=== PATIENT | male | born 1970 | race African-American/Black ===

== ENCOUNTER 2017-08-12 19:22 | Emergency (ER) | payer OTHER ==
[~2017-08-12] VITALS: Ht 177.8 cm; Wt 82.1 kg
[2017-08-12] MEDS ORDERED: IV NORMAL SALINE 1000 ML BAG IV ONE (20:00)
[2017-08-12] MEDS ORDERED: ACETAMINOPHEN ES 500 MG TABLET PO ONE (20:00)
[2017-08-12] MEDS ORDERED: ACETAMINOPHEN ES 500 MG TABLET ONE (20:24)
[2017-08-12 20:31] LABS: BASOPHILS % (AUTO) 0.5 % (0.0-2.0); BILIRUBIN,DIRECT 0.2 mg/dL (0.0-0.2); BILIRUBIN,TOTAL 0.7 mg/dL (0.2-1.0); CREATININE 1.3 mg/dL (0.6-1.3); EOSINOPHILS % (AUTO) 0.2 % (0.0-7.0); HEMATOCRIT 43.7 % (36.7-47.1); HEMOGLOBIN 14.7 g/dL (12.5-16.3); LYMPHOCYTES # (AUTO) 0.8 K/uL (20.0-40.0); MEAN CORPUSCULAR HEMOGLOBIN 26.7 uug (23.8-33.4); MEAN CORPUSCULAR HGB CONC 34 g/dL (32.5-36.3); MEAN CORPUSCULAR VOLUME 79.5 fL (73.0-96.2); MONOCYTES # (AUTO) 1.2 K/uL (2.0-10.0); MONOCYTES % (AUTO) 12.2 % (0.0-11.0); NEUTROPHILS # (AUTO) 7.9 K/uL (1.8-8.9); NEUTROPHILS % (AUTO) 79.1 % (38.5-71.5); PLATELET COUNT (AUTO) 184 K/uL (152-348); POTASSIUM 3.5 mmol/L (3.5-5.1); RED BLOOD CELL COUNT(AUTO) 5.49 MIL/uL (4.06-5.63); TOTAL PROTEIN, SERUM 7.4 g/dL (6.4-8.2)
[2017-08-12 20:53] LABS: *BILIRUBIN,URIN NEGATIVE (NEGATIVE); *BLOOD, URINE 2+ (NEGATIVE); *CLARITY,URINE CLEAR (CLEAR); *COLOR,URINE YELLOW (YELLOW); *KETONES,URINE NEGATIVE (NEGATIVE); *PROTEIN,URINE 1+ (NEGATIVE); *UROBILINOGEN,URINE 0.2 E.U./dl (NORMAL); LEUKOCYTE ESTERASE ,URINE TRACE (NEGATIVE); NITRITE, URINE NEGATIVE (NEGATIVE); UGLUCOSE NEGATIVE (NEGATIVE)
[2017-08-12 20:57] LABS: BAND % (MANUAL) 16 % (0-10); LYMPHOCYTES % (MANUAL) 10 % (20-40); MONOCYTES % (MANUAL) 11 % (2-10); NEUTROPHILS % (MANUAL) 63 % (42-75)
[2017-08-12 21:23] LABS: BACTERIA,URINE FEW /HPF (NONE SEEN); MUCUS,URINE FEW /LPF (0-FEW)
[2017-08-12] MEDS ORDERED: CEFTRIAXONE 1 G in IV DEXTROSE 5% 50 ML IV ONE (21:30)
--- NOTE | 2017-08-12 22:00 | NUR ---
Transported to CT scan
[2017-08-12] MEDS ORDERED: CEFTRIAXONE 1 G VIAL ONE (22:05)
--- NOTE | 2017-08-12 22:30 | NUR ---
Returned from CT, no significant events
--- NOTE | 2017-08-12 23:05 | NUR ---
Patient discharged to home in stable conditon. Written and verbal after care instructions given. Patient verbalizes understanding of instructions.
[2017-08-12 23:12] VITALS: BP 133/70
== END 2017-08-12 23:13 | disposition home or self-care (01) ==
LOC: ER 19:23
DX: N41.9 Inflammatory disease of prostate, unspecified (principal); Z88.5 Allergy status to narcotic agent
CPT/HCPCS: 36415; 74176; 80048; 80076; 81001; 83605; 85025; 87040 ×2; 87086; 96361; 96365; 99285; A4663; J0696; J7030; J7040; J7060

== ENCOUNTER 2017-08-14 13:08 | Inpatient (IN) | payer OTHER ==
[~2017-08-14] VITALS: Ht 188 cm; Wt 88.5 kg
[2017-08-14] MEDS ORDERED: PIPERACILLIN SODIUM/TAZOBACTAM 3.375 G in IV DEXTROSE 5% 50 ML IV ONE (14:15)
[2017-08-14] MEDS ORDERED: IV NORMAL SALINE 1000 ML BAG IV ONE (14:15)
[2017-08-14] MEDS ORDERED: AZITHROMYCIN IV 500 MG in IV DEXTROSE 5% 250 ML IV ONE (14:15)
[2017-08-14 14:43] LABS: BASOPHILS % (AUTO) 0.4 % (0.0-2.0); EOSINOPHILS % (AUTO) 0.3 % (0.0-7.0); HEMATOCRIT 42.9 % (36.7-47.1); HEMOGLOBIN 14.2 g/dL (12.5-16.3); LYMPHOCYTES # (AUTO) 1.7 K/uL (20.0-40.0); LYMPHOCYTES % (AUTO) 13.5 % (20.5-51.5); MEAN CORPUSCULAR HEMOGLOBIN 26.3 uug (23.8-33.4); MEAN CORPUSCULAR HGB CONC 33 g/dL (32.5-36.3); MEAN CORPUSCULAR VOLUME 79.4 fL (73.0-96.2); MONOCYTES # (AUTO) 2.1 K/uL (2.0-10.0); MONOCYTES % (AUTO) 17.2 % (0.0-11.0); NEUTROPHILS # (AUTO) 8.5 K/uL (1.8-8.9); NEUTROPHILS % (AUTO) 68.6 % (38.5-71.5); PLATELET COUNT (AUTO) 227 K/uL (152-348); WHITE BLOOD COUNT (AUTO) 12.4 K/uL (3.6-10.2)
[2017-08-14 14:44] LABS: CREATININE 1.3 mg/dL (0.6-1.3); POTASSIUM 3.7 mmol/L (3.5-5.1)
[2017-08-14 14:50] LABS: BILIRUBIN,DIRECT 0.1 mg/dL (0.0-0.2); BILIRUBIN,TOTAL 0.5 mg/dL (0.2-1.0); TOTAL PROTEIN, SERUM 7.5 g/dL (6.4-8.2)
[2017-08-14 15:07] LABS: BAND % (MANUAL) 13 % (0-10); LYMPHOCYTES % (MANUAL) 15 % (20-40); MONOCYTES % (MANUAL) 15 % (2-10); NEUTROPHILS % (MANUAL) 57 % (42-75)
[2017-08-14 15:15] LABS: *BILIRUBIN,URIN NEGATIVE (NEGATIVE); *BLOOD, URINE 1+ (NEGATIVE); *CLARITY,URINE SLIGHTLY CLOUDY (CLEAR); *COLOR,URINE YELLOW (YELLOW); *KETONES,URINE TRACE (NEGATIVE); *PROTEIN,URINE 2+ (NEGATIVE); *UROBILINOGEN,URINE 0.2 E.U./dl (NORMAL); NITRITE, URINE NEGATIVE (NEGATIVE); PH,URINE 6.5 (5.0-8.0); UGLUCOSE NEGATIVE (NEGATIVE)
--- NOTE | 2017-08-14 15:17 | NUR ---
lab michelle blood and blood cx,cxr done, iv placed, azithromycin infusing, 1L 0.9ns bolus infusing. monitor shows nsr, po2=99%. urine sent earlier. pt positioned for comfort.
[2017-08-14] MEDS ORDERED: PIPERACILLIN/TAZOBACTAM/D5W 50 ML IV ONE (15:26)
[2017-08-14] MEDS ORDERED: AZITHROMYCIN 500 MG VIAL IV ONE (15:26)
[2017-08-14 15:27] LABS: LEUKOCYTE ESTERASE ,URINE 2+ (NEGATIVE)
[2017-08-14 15:28] LABS: BACTERIA,URINE FEW /HPF (NONE SEEN); MUCUS,URINE MANY /LPF (0-FEW); WBC,URINE 80-100 /HPF (0-3)
[2017-08-14] MEDS ORDERED: KETOROLAC TROMETHAMINE 30 MG INJ IVP ONE (15:45)
[2017-08-14] MEDS ORDERED: KETOROLAC TROMETHAMINE 30 MG INJ ONE (16:02)
--- NOTE | 2017-08-14 17:10 | NUR ---
MSE COMPLETED, BELONGINGS LIST, ADMIT ORDER COMPLETED. SBAR REPORT TO GALLO DELCID. PT TO RM 227 VIA W/C.
[2017-08-14] MEDS ORDERED: ONDANSETRON 4 MG/2 ML VIAL IV PRN (17:15)
[2017-08-14] MEDS ORDERED: CLONIDINE HCL 0.1 MG TABLET PO PRN (17:15)
[2017-08-14] MEDS ORDERED: ZOLPIDEM 5 MG TABLET PO PRN (17:15)
[2017-08-14] MEDS ORDERED: MAGNESIUM HYDROXIDE 30 ML LIQUID UDC PO PRN (17:15)
--- NOTE | 2017-08-14 17:25 | NUR ---
RECEIVED PATIENT FOR ADMISSION 46 YEARS OLD MALE FROM ED WITH DX OF URINARY TRACT INFECTION AND PROSTATITIS PLACED INTO BED FIXED AND MADE COMFORTABLE PATIENT IS ALERT AND ORIENTED ON ROOM AIR.ORIENTED TO HIS ROOM AND FACILITY PROTOCOL NOT IN DISTRESS AT THIS TIME.
--- NOTE | 2017-08-14 17:31 | NUR ---
CLINICAL PHARMACY NOTE: VANCOMYCIN DOSING Request for vancomycin dosing on 46 y/o male 6'2" 195lbs for UTI Temp 100.1 BUN 8 Scr 1.3 WBC 12.4 Bands 13 also on Zosyn Start vancomycin 1250mg ivpb 12h will order trough prior to 4 th dose. Will continue to monitor
[2017-08-14 17:50] VITALS: BP 147/96
[2017-08-14] MEDS: IV 1/2NS 1000 ML 1,000 ML IV PRN (18:05)
[2017-08-14] MEDS: VANCOMYCIN IV 1,250 MG in IV DEXTROSE 5% 500 ML IV SCH (18:05)
--- NOTE | 2017-08-14 18:28 | NUR ---
IVPB AND IV ANTIBIOTICS ARE IN PROGRESS AT THIS TIME WITH NO ADVERSE OR ALLERGIC REACTIONS AT THIS TIME WILL CONTINUE TO OBSERVE.
--- NOTE | 2017-08-14 19:00 | NUR ---
Patient is laying in bed with HOB elevated at 30 degrees. Patient denies pain or discomfort at this point and time. Call light is with in reach.
[2017-08-14 20:00] VITALS: BP 140/89
[2017-08-14] MEDS: PIPERACILLIN/TAZOBACTAM/D5W 50 ML IV SCH (20:31)
[2017-08-14] MEDS: KETOROLAC TROMETHAMINE 30 MG INJ IVP PRN (20:45)
[2017-08-15] MEDS: ACETAMINOPHEN 325 MG TABLET PO PRN ×2 (04:14→18:57)
[2017-08-15] MEDS: PIPERACILLIN/TAZOBACTAM/D5W 50 ML IV SCH ×4 (04:48→20:44)
[2017-08-15] MEDS: IV 1/2NS 1000 ML 1,000 ML IV PRN ×2 (04:51→20:36)
--- NOTE | 2017-08-15 05:15 | NUR ---
TYLENOL EFFECTIVE. DISCOMFORT HAS IMPROVED. PER PATIENT HE IS STILL HAVING BOUTS OF SWEATING AND CHILLS AT TIMES.
[2017-08-15 06:00] VITALS: BP 143/86
[2017-08-15] MEDS: VANCOMYCIN IV 1,250 MG in IV DEXTROSE 5% 500 ML IV SCH ×2 (06:16→17:26)
--- NOTE | 2017-08-15 06:45 | NUR ---
NOTED LOW GRAD FEVER. NO EPISODES OF FALLS ON SHIFT. CALL LIGHT WITH IN REACH. PATIENT WAS PAIN FREE THROUGHOUT PURCHASING/RECEIVING. WILL CONTINUE TO MONITOR.
[2017-08-15 07:04] LABS: BASOPHILS # (AUTO) 0.1 K/uL (0.0-8.0); BASOPHILS % (AUTO) 0.5 % (0.0-2.0); EOSINOPHILS # (AUTO) 0.2 K/uL (0.0-0.7); EOSINOPHILS % (AUTO) 1.6 % (0.0-7.0); HEMATOCRIT 39.2 % (36.7-47.1); HEMOGLOBIN 12.9 g/dL (12.5-16.3); LYMPHOCYTES # (AUTO) 1.9 K/uL (20.0-40.0); LYMPHOCYTES % (AUTO) 18.6 % (20.5-51.5); MEAN CORPUSCULAR HEMOGLOBIN 26.2 uug (23.8-33.4); MEAN CORPUSCULAR HGB CONC 33 g/dL (32.5-36.3); MEAN CORPUSCULAR VOLUME 79.6 fL (73.0-96.2); MONOCYTES # (AUTO) 1.8 K/uL (2.0-10.0); MONOCYTES % (AUTO) 17.8 % (0.0-11.0); NEUTROPHILS # (AUTO) 6.3 K/uL (1.8-8.9); NEUTROPHILS % (AUTO) 61.5 % (38.5-71.5); PLATELET COUNT (AUTO) 236 K/uL (152-348); RED BLOOD CELL COUNT(AUTO) 4.92 MIL/uL (4.06-5.63); WHITE BLOOD COUNT (AUTO) 10.2 K/uL (3.6-10.2)
[2017-08-15 07:22] LABS: BILIRUBIN,TOTAL 0.4 mg/dL (0.2-1.0); CREATININE 1.1 mg/dL (0.6-1.3); MAGNESIUM 1.9 mg/dL (1.8-2.4); PHOSPHOROUS 2.9 mg/dL (2.5-4.9); POTASSIUM 4.4 mmol/L (3.5-5.1); TOTAL PROTEIN, SERUM 6.4 g/dL (6.4-8.2)
[2017-08-15] MEDS: PANTOPRAZOLE SODIUM 40 MG TABLET.DR PO SCH (07:27)
--- NOTE | 2017-08-15 08:00 | NUR ---
RECEIVED PATIENT AWAKE ALERT AND ORIENTED STATED HAS MILD PAIN BUT DECLINED PAIN MEDICATION AT THIS TIME REMAIN ON IVF AND IV ANTIBIOTICS ORDERED WITH NO ADVERSE OR ALLERGIC REACTIONS AT THIS TIME VOIDING WITH BRP MADE COMFORTABLE NOT IN DISTRESS AND WILL CONTINUE TO OBSERVE.
[2017-08-15] MEDS: KETOROLAC TROMETHAMINE 30 MG INJ IVP PRN ×2 (08:40→14:55)
[2017-08-15 11:45] VITALS: BP 137/89
[2017-08-15 12:20] LABS: BAND % (MANUAL) 12 % (0-10); EOSINOPHILS % (MANUAL) 2 % (0-8); LYMPHOCYTES % (MANUAL) 13 % (20-40); MONOCYTES % (MANUAL) 13 % (2-10); NEUTROPHILS % (MANUAL) 60 % (42-75)
--- NOTE | 2017-08-15 14:50 | NUR ---
CLINICAL PHARMACY NOTE: VANCOMYCIN DOSING To continue vancomycin dosing on 46 y/o male 6'2" 195lbs for UTI Temp 99.1 BUN 10 Scr 1.1 WBC 10.2 also on Zosyn Will continue vancomycin 1250mg ivpb 12h, trough pending for tomorrow early am at 0530. Will check trough and readjust as needed. Will continue to monitor
--- NOTE | 2017-08-15 15:00 | NUR ---
PATIENT STATED THAT HE FEELS THE CHILL AND THINKS THAT HE HAS A FEVER TEMP CHECKED AND ITS 99.2 PATIENT ALSO STATED THAT HE DOES NOT FEEL GOOD UNABLE TO ELABORATE FUTHER SO DR WHALEY CALLED AND HE STATED WILL SEE PATIENT SOON HE GETS BACK TO THE HOSPITAL THIS EVENING.
[2017-08-15 15:50] VITALS: BP 148/95
--- NOTE | 2017-08-15 17:00 | NUR ---
REMAIN ON IV ANTIBIOTICS ORDERED WITH NO ADVERSE OR ALLERGIC REACTIONS AT THIS TIME IV SITE CHANGED TO HIS LEFT UPPER ARM.
--- NOTE | 2017-08-15 18:57 | NUR ---
PATIENT REQUESTED FOR TYLENOL STATED HAS GENERALISED ACHES MEDICATED ORDERED
[2017-08-15 19:00] VITALS: BP 146/87
[2017-08-15] MEDS: MORPHINE SULFATE 4 MG/1 ML DISP.SYRIN IV PRN (20:35)
[2017-08-15] MEDS: TAMSULOSIN HCL 0.4 MG CAP.SR.24H PO SCH (20:35)
[2017-08-15] MEDS: IBUPROFEN 400 MG TABLET PO PRN (23:33)
[2017-08-15] MEDS ORDERED: IBUPROFEN 400 MG TABLET ONE (23:44)
[2017-08-16] MEDS: MORPHINE SULFATE 4 MG/1 ML DISP.SYRIN IV PRN ×5 (01:09→18:12)
[2017-08-16] MEDS: PIPERACILLIN/TAZOBACTAM/D5W 50 ML IV SCH ×4 (01:09→20:12)
--- NOTE | 2017-08-16 05:47 | NUR ---
PT SLEPT INTERMITTENTLY THROUGH THE NIGHT AND WAS EASILY AWOKEN, PT COMPLAINED OF PAIN, MORPHINE WAS GIVEN AND WAS EFFECTIVE. PT DENIED HAVING ANY DIFFICULTY BREATHING. PT HAD ELEVATED TEM AT START OF SHIFT, COOLING MEASURES WERE PROVIDED AND WAS NOT EFFECTIVE, PT WAS GIVEN MOTRIN AND WAS EFFECTIVE. ALL NEEDS MET SAFETY MEASURES ARE IN PLACE, CALL LIGHT WITHIN REACH, BED ALARM IS ON.
[2017-08-16] MEDS ORDERED: MORPHINE SULFATE 4 MG/1 ML DISP.SYRIN ONE (05:59)
[2017-08-16] MEDS: PANTOPRAZOLE SODIUM 40 MG TABLET.DR PO SCH (06:14)
[2017-08-16] MEDS: ACETAMINOPHEN 325 MG TABLET PO PRN ×3 (06:14→18:16)
[2017-08-16 06:23] LABS: BASOPHILS # (AUTO) 0.1 K/uL (0.0-8.0); BASOPHILS % (AUTO) 0.5 % (0.0-2.0); EOSINOPHILS % (AUTO) 0.2 % (0.0-7.0); HEMATOCRIT 42.3 % (36.7-47.1); LYMPHOCYTES # (AUTO) 1.9 K/uL (20.0-40.0); LYMPHOCYTES % (AUTO) 10.4 % (20.5-51.5); MEAN CORPUSCULAR HEMOGLOBIN 26.1 uug (23.8-33.4); MEAN CORPUSCULAR HGB CONC 33 g/dL (32.5-36.3); MONOCYTES # (AUTO) 1.8 K/uL (2.0-10.0); MONOCYTES % (AUTO) 9.6 % (0.0-11.0); NEUTROPHILS # (AUTO) 14.5 K/uL (1.8-8.9); NEUTROPHILS % (AUTO) 79.3 % (38.5-71.5); PLATELET COUNT (AUTO) 270 K/uL (152-348); RED BLOOD CELL COUNT(AUTO) 5.36 MIL/uL (4.06-5.63); WHITE BLOOD COUNT (AUTO) 18.3 K/uL (3.6-10.2)
[2017-08-16 06:30] LABS: CREATININE 1.4 mg/dL (0.6-1.3); MAGNESIUM 1.9 mg/dL (1.8-2.4); PHOSPHOROUS 3.9 mg/dL (2.5-4.9); POTASSIUM 4.1 mmol/L (3.5-5.1)
[2017-08-16] MEDS: VANCOMYCIN IV 1,250 MG in IV DEXTROSE 5% 500 ML IV SCH (06:40)
[2017-08-16 07:21] LABS: *GC NAA Negative (Negative); *TRIC.VAG. NAA Negative (Negative)
[2017-08-16 09:37] LABS: BAND % (MANUAL) 10 % (0-10); EOSINOPHILS % (MANUAL) 1 % (0-8); LYMPHOCYTES % (MANUAL) 14 % (20-40); MONOCYTES % (MANUAL) 11 % (2-10); NEUTROPHILS % (MANUAL) 64 % (42-75)
[2017-08-16 11:27] VITALS: BP 155/97
[2017-08-16] MEDS ORDERED: BARIUM SULFATE 450 ML ORAL.SUSP ONE (11:45)
[2017-08-16] MEDS ORDERED: IV NORMAL SALINE 250 ML IV ONE (11:45)
[2017-08-16] MEDS ORDERED: IOHEXOL 300MG/ML 100 ML INFUS..BTL ONE (11:45)
[2017-08-16 11:53] VITALS: BP 155/97
--- NOTE | 2017-08-16 13:28 | NUR ---
CLINICAL PHARMACY NOTE: VANCOMYCIN DOSING S: To continue vancomycin dosing on 46 y/o male 6'2" 195lbs for UTI o: Temp 99.3 BUN 9 Scr 1.4 WBC 18.3 vanco trough level: 6 P: Since vanco trough level is sub therapeutic, Will change dose form vancomycin 1250mg ivpb 12h to vancomycin 1500mg IVPB q10h for predicted vanco trough level of 15 mcg/ml. 1st dose is due today at 1500. Plan to order vanco trough level before 4th dose (level not yet ordered). Will monitor renal function & adjust dose if needed.. Will continue to monitor
[2017-08-16 14:14] VITALS: BP 139/86
[2017-08-16] MEDS ORDERED: VANCOMYCIN IV 1,500 MG in IV DEXTROSE 5% 500 ML IV SCH (15:00)
--- NOTE | 2017-08-16 16:34 | NUR ---
Patient been in bed awake watching TV. No s/s of distress noted. Fever was noted during the day, Tylenol given but patient continue to have a fever above >100.[address] Flor and Shayne notified. Preliminary gram (-)(+) rods was notified by lab, Dr. Bella aware. Stool OB was collected and sent it to lab. Patient is bed now, alert. Medication were given as ordered. all procedures were done. Safety and comfort provided. Will continue monitoring.
[2017-08-16 16:54] VITALS: BP 136/85
[2017-08-16] MEDS: IV 1/2NS 1000 ML 1,000 ML IV PRN (18:19)
--- NOTE | 2017-08-16 18:45 | NUR ---
Patient in bed alert, no s/s of distress noted. Latest Temp 100.1, Dr. Flor aware. New order of Tylenol q4h prn was ordered. Ice packs were given to lower the fever, patient have been cooperative with the care. Safety and comfort provided. Report will be given to the next shift nurse
--- NOTE | 2017-08-16 18:50 | NUR ---
Patient did not have a reaction during my shift from the acetaminophen. Will continue monitoring for any reaction.
[2017-08-16] MEDS ORDERED: ACETAMINOPHEN 325 MG TABLET PO PRN (19:00)
[2017-08-16 20:00] VITALS: BP 120/79
--- NOTE | 2017-08-16 20:00 | NUR ---
NSG: PATIENT TEMP 101.3. COOLING MEASURE PROVIDED. TYLENOL NOT DUE YET.ENCOURAGED PO INTAKE. CHARGE NURSE MADE AWARE.
--- NOTE | 2017-08-16 20:00 | NUR ---
NSG: RECEIVED PATIENT AWAKE ALERT AND ORIENTED NO C/O PAIN OR SOB AT THIS TIME. REMAIN ON IVF AND IV ANTIBIOTICS ORDERED WITH NO ADVERSE OR ALLERGIC REACTIONS AT THIS TIME VOIDING WITH BRP MADE COMFORTABLE NOT IN DISTRESS AND WILL CONTINUE TO OBSERVE.
[2017-08-16] MEDS: TAMSULOSIN HCL 0.4 MG CAP.SR.24H PO SCH (20:29)
[2017-08-16] MEDS: LACTOBACILLUS RHAMNOSUS GG 1 EACH CAPSULE PO SCH (20:29)
--- NOTE | 2017-08-16 21:00 | NUR ---
NSG: TEMP 99.5 NOW. COOLING MEASURE EFFECTIVE.
[2017-08-16] MEDS: IBUPROFEN 400 MG TABLET PO PRN (21:11)
--- NOTE | 2017-08-16 21:13 | NUR ---
NSG: PATIENT C/O PAIN. MOTRIN 400 MG PO GIVEN.
[2017-08-16] MEDS: LEVOFLOXACIN 500 MG/D5W 500 MG in PREMIXED 1 EACH IV SCH (21:41)
--- NOTE | 2017-08-16 22:15 | NUR ---
NSG: PATIENT STATED I AM FEELING BETTER NOW. PRN EFFECTIVE FOR PAIN.
[2017-08-17] VITALS: BP 120/58
--- NOTE | 2017-08-17 02:01 | NUR ---
NSG: PATIENT REFUSED IVF STATED I DON;T WANT THIS. I AM DRINKING ENOUGH WATER.
[2017-08-17 04:00] VITALS: BP 130/91
[2017-08-17 05:33] VITALS: BP 130/91
--- NOTE | 2017-08-17 05:36 | NUR ---
NSG: REMAIN COMFORTABLE MOST OF THE NIGHT. PT SLEPT INTERMITTENTLY THROUGH THE NIGHT. PT DENIED HAVING ANY DIFFICULTY BREATHING. PT HAD TEMP 101.3 AT START OF SHIFT, COOLING MEASURES WERE PROVIDED AND WAS EFFECTIVE, GIVEN MOTRIN AND WAS EFFECTIVE FOR PAIN. NO C/O PAIN OR DISCOMFORT @ THIS TIME. VOIDING FREELY. TEMP 98.7 THIS MORNING. ALL NEEDS MET SAFETY MEASURES ARE IN PLACE, CALL LIGHT WITHIN REACH, BED ALARM IS ON. CONTINUE PLAN OF CARE.
[2017-08-17] MEDS: IV 1/2NS 1000 ML 1,000 ML IV PRN ×2 (06:11→17:04)
[2017-08-17] MEDS: PANTOPRAZOLE SODIUM 40 MG TABLET.DR PO SCH (06:16)
[2017-08-17 07:26] LABS: BASOPHILS % (AUTO) 0.3 % (0.0-2.0); CREATININE 1.2 mg/dL (0.6-1.3); EOSINOPHILS # (AUTO) 0.2 K/uL (0.0-0.7); EOSINOPHILS % (AUTO) 0.9 % (0.0-7.0); HEMATOCRIT 40.6 % (36.7-47.1); HEMOGLOBIN 13.6 g/dL (12.5-16.3); LYMPHOCYTES % (AUTO) 10.6 % (20.5-51.5); MAGNESIUM 2.2 mg/dL (1.8-2.4); MEAN CORPUSCULAR HEMOGLOBIN 26.6 uug (23.8-33.4); MEAN CORPUSCULAR HGB CONC 34 g/dL (32.5-36.3); MEAN CORPUSCULAR VOLUME 79.4 fL (73.0-96.2); MONOCYTES % (AUTO) 10.4 % (0.0-11.0); NEUTROPHILS # (AUTO) 14.7 K/uL (1.8-8.9); NEUTROPHILS % (AUTO) 77.8 % (38.5-71.5); PHOSPHOROUS 3.2 mg/dL (2.5-4.9); PLATELET COUNT (AUTO) 309 K/uL (152-348); POTASSIUM 3.9 mmol/L (3.5-5.1); RED BLOOD CELL COUNT(AUTO) 5.11 MIL/uL (4.06-5.63); WHITE BLOOD COUNT (AUTO) 18.9 K/uL (3.6-10.2)
--- NOTE | 2017-08-17 08:00 | NUR ---
PATIENT IS AWAKE, AOX3 AND COOPERATIVE. HE COMPLAINS OF PAIN 8/10 IN THE PROSTATE AREA, MEDICATED PER MD ORDERS. WILL REASSESS PAIN AND CONTINUE TO MONITOR PATIENT
[2017-08-17] MEDS: LACTOBACILLUS RHAMNOSUS GG 1 EACH CAPSULE PO SCH ×2 (08:28→20:29)
[2017-08-17] MEDS: KETOROLAC TROMETHAMINE 30 MG INJ IVP PRN ×3 (08:30→20:29)
--- NOTE | 2017-08-17 08:30 | NUR ---
PAIN MEDICATION EFFECTIVE, PATIENT STATES PAIN LEVEL IS 3/10. WILL CONTINUE TO MONITOR PATIENT
[2017-08-17 10:07] LABS: HEPATITIS B SURFACE AB Reactive (.); HEPATITIS B SURFACE AG Negative (Negative)
[2017-08-17 11:00] VITALS: BP 141/85
--- NOTE | 2017-08-17 12:00 | NUR ---
PATIENT IN BED AWAKE WATCHING TV, NO SIGNS OR SYMPTOMS OF DISTRESS OR DISCOMFORT NOTED AT THIS TIME, WILL CONTINUE TO MONITOR PATIENT
[2017-08-17 12:52] LABS: BAND % (MANUAL) 1 % (0-10); LYMPHOCYTES % (MANUAL) 17 % (20-40); MONOCYTES % (MANUAL) 11 % (2-10); MYELOCYTES % 1 % (0-0); NEUTROPHILS % (MANUAL) 70 % (42-75)
--- NOTE | 2017-08-17 14:33 | NUR ---
PATIENT C/O OF PAIN 8/10 IN PROSTATE/ABDOMEN AREA, PRN PAIN MEDICATION ADMINISTERED PER MD ORDERS. WILL CONTINUE TO MONITOR PATIENT
--- NOTE | 2017-08-17 15:10 | NUR ---
PAIN MEDICATION EFFECTIVE, PATIENT STATES "I FEELS MUCH BETTER", PAIN IS DOWN TO 3/10 WILL CONTINUE TO MONITOR PATIENT
[2017-08-17 15:53] VITALS: BP 137/88
--- NOTE | 2017-08-17 19:20 | NUR ---
Received patient awake, watching TV at this time but presented tolerable pain. Will continue to monitor.
[2017-08-17 20:00] VITALS: BP 142/87
[2017-08-17] MEDS: LEVOFLOXACIN 500 MG/D5W 500 MG in PREMIXED 1 EACH IV SCH (20:28)
[2017-08-17] MEDS: TAMSULOSIN HCL 0.4 MG CAP.SR.24H PO SCH (20:29)
[2017-08-18] MEDS: KETOROLAC TROMETHAMINE 30 MG INJ IVP PRN ×2 (03:58→08:27)
[2017-08-18] MEDS: IV 1/2NS 1000 ML 1,000 ML IV PRN ×2 (03:59→15:11)
[2017-08-18] MEDS: PANTOPRAZOLE SODIUM 40 MG TABLET.DR PO SCH (05:50)
[2017-08-18 05:57] VITALS: BP 143/85
[2017-08-18 06:40] LABS: BASOPHILS # (AUTO) 0.1 K/uL (0.0-8.0); BASOPHILS % (AUTO) 0.5 % (0.0-2.0); EOSINOPHILS # (AUTO) 0.1 K/uL (0.0-0.7); EOSINOPHILS % (AUTO) 0.7 % (0.0-7.0); HEMOGLOBIN 13.1 g/dL (12.5-16.3); LYMPHOCYTES # (AUTO) 1.7 K/uL (20.0-40.0); LYMPHOCYTES % (AUTO) 11.3 % (20.5-51.5); MEAN CORPUSCULAR HEMOGLOBIN 26.1 uug (23.8-33.4); MEAN CORPUSCULAR HGB CONC 33 g/dL (32.5-36.3); MONOCYTES # (AUTO) 1.2 K/uL (2.0-10.0); MONOCYTES % (AUTO) 8.2 % (0.0-11.0); NEUTROPHILS # (AUTO) 11.7 K/uL (1.8-8.9); NEUTROPHILS % (AUTO) 79.3 % (38.5-71.5); PLATELET COUNT (AUTO) 338 K/uL (152-348); WHITE BLOOD COUNT (AUTO) 14.8 K/uL (3.6-10.2)
--- NOTE | 2017-08-18 06:43 | NUR ---
Medicated twice for complaint of prostate pain with relief. Slept in between care. All needs attended and mety. Continue on ATB IVPB without s/s of adverse reaction noted. IVF infusing as ordered. Continue care as planned.
[2017-08-18 06:51] LABS: CREATININE 1.2 mg/dL (0.6-1.3); MAGNESIUM 2.1 mg/dL (1.8-2.4); PHOSPHOROUS 2.3 mg/dL (2.5-4.9); POTASSIUM 4.1 mmol/L (3.5-5.1)
[2017-08-18] MEDS: LACTOBACILLUS RHAMNOSUS GG 1 EACH CAPSULE PO SCH ×2 (08:25→21:00)
--- NOTE | 2017-08-18 09:00 | NUR ---
PATIENT COMPLAINED OF PAIN 9/10 ON PAIN SCALE, ABD PAIN. PAIN MANAGEMENT PROVIDED. PATIENT IN STABLE CONDITION, NO S/S OF DISTRESS. TEMPERATURE SLIGHTLY ELEVATED: TYLENOL 650 MG PO ADMINISTERED. SAFETY/COMFORT WILL BE PROVIDED THROUGHOUT SHIFT.
[2017-08-18 09:49] VITALS: BP 148/86
[2017-08-18] MEDS ORDERED: NEUTRA PHOS PACKET PO ONE (10:45)
[2017-08-18 11:40] VITALS: BP 144/92
[2017-08-18] MEDS: MORPHINE SULFATE 4 MG/1 ML DISP.SYRIN IV PRN ×2 (15:11→20:59)
[2017-08-18 15:15] VITALS: BP 142/76
--- NOTE | 2017-08-18 18:28 | NUR ---
Patient been in bed resting during the day. No s/s of distress noted. C/O of abdominal pain during my shift, medicated as ordered, haven't been effective. Dr. Flor aware, waiting for new orders. Patient been cooperative with all interventions, temperature have been under control. Safety and comfort provided by staff. Will continue monitoring.
[2017-08-18 20:27] VITALS: BP 141/88
[2017-08-18] MEDS: TAMSULOSIN HCL 0.4 MG CAP.SR.24H PO SCH (20:57)
[2017-08-18] MEDS ORDERED: MORPHINE SULFATE 2 MG/1 ML DISP.SYRIN ONE (21:09)
[2017-08-18] MEDS: LEVOFLOXACIN 500 MG/D5W 500 MG in PREMIXED 1 EACH IV SCH (21:40)
[2017-08-19] MEDS: IV 1/2NS 1000 ML 1,000 ML IV PRN (02:36)
[2017-08-19] MEDS: MORPHINE SULFATE 4 MG/1 ML DISP.SYRIN IV PRN ×3 (03:31→17:44)
[2017-08-19] MEDS ORDERED: MORPHINE SULFATE 2 MG/1 ML DISP.SYRIN ONE (03:35)
[2017-08-19] MEDS ORDERED: MORPHINE SULFATE 4 MG/1 ML DISP.SYRIN ONE (03:35)
[2017-08-19 04:00] VITALS: BP 157/99
[2017-08-19] MEDS: PANTOPRAZOLE SODIUM 40 MG TABLET.DR PO SCH (06:20)
[2017-08-19 06:55] LABS: BASOPHILS # (AUTO) 0.1 K/uL (0.0-8.0); BASOPHILS % (AUTO) 0.6 % (0.0-2.0); EOSINOPHILS # (AUTO) 0.2 K/uL (0.0-0.7); EOSINOPHILS % (AUTO) 1.5 % (0.0-7.0); HEMATOCRIT 39.4 % (36.7-47.1); HEMOGLOBIN 12.8 g/dL (12.5-16.3); LYMPHOCYTES # (AUTO) 1.8 K/uL (20.0-40.0); LYMPHOCYTES % (AUTO) 13.1 % (20.5-51.5); MEAN CORPUSCULAR HGB CONC 33 g/dL (32.5-36.3); MEAN CORPUSCULAR VOLUME 79.9 fL (73.0-96.2); MONOCYTES # (AUTO) 1.3 K/uL (2.0-10.0); MONOCYTES % (AUTO) 9.2 % (0.0-11.0); NEUTROPHILS # (AUTO) 10.4 K/uL (1.8-8.9); NEUTROPHILS % (AUTO) 75.6 % (38.5-71.5); PLATELET COUNT (AUTO) 400 K/uL (152-348); RED BLOOD CELL COUNT(AUTO) 4.93 MIL/uL (4.06-5.63); WHITE BLOOD COUNT (AUTO) 13.7 K/uL (3.6-10.2)
--- NOTE | 2017-08-19 07:30 | NUR ---
Received client in bed in a supine position. Client is awake, alert and orient times 4, able to verbalize needs. Noted no sign and symptoms of SOB, distress, discomfort or pain. Client verbalized to need to urinated, assistance was offered but client refused.
[2017-08-19 07:31] LABS: CREATININE 1.2 mg/dL (0.6-1.3); MAGNESIUM 1.9 mg/dL (1.8-2.4); PHOSPHOROUS 3.4 mg/dL (2.5-4.9)
[2017-08-19] MEDS: LACTOBACILLUS RHAMNOSUS GG 1 EACH CAPSULE PO SCH (09:17)
[2017-08-19 11:32] LABS: *BILIRUBIN,URIN NEGATIVE (NEGATIVE); *BLOOD, URINE Trace-intact (NEGATIVE); *COLOR,URINE YELLOW (YELLOW); *KETONES,URINE NEGATIVE (NEGATIVE); *PROTEIN,URINE NEGATIVE (NEGATIVE); *UROBILINOGEN,URINE 0.2 E.U./dl (NORMAL); LEUKOCYTE ESTERASE ,URINE 1+ (NEGATIVE); NITRITE, URINE NEGATIVE (NEGATIVE); UGLUCOSE NEGATIVE (NEGATIVE)
[2017-08-19 11:43] LABS: *CLARITY,URINE SLIGHTLY HAZY (CLEAR)
[2017-08-19 12:03] LABS: RBC,URINE 0-3 /HPF (0-3)
[2017-08-19 12:04] LABS: BACTERIA,URINE NONE SEEN /HPF (NONE SEEN); SQUAMOUS EPITHELIAL CELL,UR NONE SEEN /HPF (NONE SEEN)
[2017-08-19 12:09] VITALS: BP 134/86
--- NOTE | 2017-08-19 12:30 | NUR ---
Seen by on-call hospital doctor with discharge orders
[2017-08-19] MEDS ORDERED: LEVO500T2 PO (12:50)
[2017-08-19] MEDS ORDERED: IBUP-1953 PO (12:50)
[2017-08-19] MEDS ORDERED: TAMS-3 PO (12:50)
[2017-08-19] MEDS ORDERED: LACT1CAP57 PO (12:50)
[2017-08-19 15:54] VITALS: BP 156/89
--- NOTE | 2017-08-19 19:23 | NUR ---
Client is ready for discharge. Client has orders to be discharged home by the on-call hospital doctor. Client is in stable condition. No signs and symptoms of pain as or right now. Client has been informed about his prescribed medications. Client verbalized he is waiting for his friend. Antibiotice Po given before discharge. All personal belonging accounted for.
--- NOTE | 2017-08-19 19:30 | NUR ---
Discharged patient to home with a friend and belongings. VS stable. No complaint presented. No s/s of respiratory distress noted.
[2017-08-19] MEDS ORDERED: LEVOFLOXACIN 500 MG TABLET PO SCH (20:00)
== END 2017-08-19 19:30 | disposition home or self-care (01) | DRG 720 ==
LOC: ER 13:12 → MED 16:58
PROVIDERS: ADMIT Internal Medicine; ATTEND Internal Medicine
DX: A41.9 Sepsis, unspecified organism (principal); N17.0 Acute kidney failure with tubular necrosis; N41.0 Acute prostatitis; N30.00 Acute cystitis without hematuria; B96.1 Klebsiella pneumoniae [K. pneumoniae] as the cause of diseases classified elsewhere; R03.0 Elevated blood-pressure reading, without diagnosis of hypertension; K42.9 Umbilical hernia without obstruction or gangrene; A64 Unspecified sexually transmitted disease; N41.2 Abscess of prostate
CPT/HCPCS: 36415; 70030-TC; 71010; 83605; 83735; 84100; 85025; 85730; 86592; 86706; 86803; 87040; 87086; 87340; 87491; 87806; 93005; A4663; J0456; J1885; J1956; J2270; J2543; J3370; J3490; J7030; J7050; J7060; Q9951; Q9967